=== PATIENT | female | born 1970 | race Caucasian/White ===

== ENCOUNTER 2021-05-16 15:16 | Emergency (ER) | payer MEDICAID ==
[~2021-05-16] VITALS: Ht 172.7 cm; Wt 77.1 kg
[2021-05-16] MEDS ORDERED: INSULIN REGULAR, HUMAN 100 UNIT/ML 3 ML VIAL IV ONE (15:19)
[2021-05-16 15:29] VITALS: BP 142/79
--- NOTE | 2021-05-16 15:29 | NUR ---
To ER, SANDRA RA 860 "Homeless. Suicidal thought- shoot myself." Hx of diabetes, denies any pain, aaox3, breathing even and non labored, made comfortable, awaiting md orders
--- NOTE | 2021-05-16 15:31 | NUR ---
URINE COLLECTED AND SENT TO LAB
[2021-05-16] MEDS ORDERED: METFORMIN 500 MG TABLET PO ONE (16:00)
[2021-05-16 16:15] LABS: BASOPHILS % (AUTO) 0.3 % (0.0-2.0); HEMATOCRIT 39 % (33-45); HEMOGLOBIN 12.7 g/dL (11.5-14.8); LYMPHOCYTES % (AUTO) 16.3 % (20.0-44.0); MEAN CORPUSCULAR HGB CONC 33 g/dl (31.0-36.0); MEAN CORPUSCULAR VOLUME 80 fL (82-100); MONOCYTES # (AUTO) 0.8 K/uL (0.1-1.30); MONOCYTES % (AUTO) 6.1 % (2.0-12.0); NEUTROPHILS # (AUTO) 9.4 K/uL (1.8-8.9); NEUTROPHILS % (AUTO) 76.3 % (43.0-81.0); PLATELET COUNT (AUTO) 350 K/uL (150-450); RED BLOOD CELL COUNT(AUTO) 4.89 MIL/uL (4.0-5.2); WHITE BLOOD COUNT (AUTO) 12.4 K/uL (4.3-11.0)
[2021-05-16 16:26] LABS: BILIRUBIN,URINE NEGATIVE (NEGATIVE); COLOR,URINE YELLOW (YELLOW); LEUKOCYTE ESTERASE ,URINE NEGATIVE (NEGATIVE); NITRITE, URINE NEGATIVE (NEGATIVE); PROTEIN,URINE NEGATIVE (NEGATIVE); UGLUCOSE >=1000 mg/dL (NEGATIVE); UROBILINOGEN,URINE 0.2 EU/dL (0.2)
[2021-05-16 16:45] LABS: ALANINE AMINOTRANSFERASE 16 U/L (12-78); ALBUMIN 3.1 g/dL (3.4-5.0); ALKALINE PHOSPHATASE 101 U/L (46-116); ASPARTATE AMINOTRANSFERASE 8 U/L (15-37); BILIRUBIN,DIRECT 0.1 mg/dL (0.0-0.2); BILIRUBIN,TOTAL 0.2 mg/dL (0.2-1.0); CALCIUM, SERUM 9.4 mg/dL (8.5-10.1); CARBON DIOXIDE 28 mmol/L (21-32); CHLORIDE 100 mmol/L (98-107); CREATININE 0.8 mg/dL (0.6-1.3); GLUCOSE 329 mg/dL (74-106); POTASSIUM 4.1 mmol/L (3.5-5.1); SODIUM SERUM 136 mmol/L (136-145); TOTAL PROTEIN, SERUM 7.6 g/dL (6.4-8.2); UREA NITROGEN, BLOOD 15 mg/dL (7-18)
[2021-05-16 16:47] LABS: BACTERIA,URINE RARE /HPF (None Seen); MUCUS,URINE Few /LPF (None Seen)
[2021-05-16] MEDS ORDERED: METFORMIN 500 MG TABLET ONE (16:48)
[2021-05-16 16:55] LABS: ACETAMINOPHEN 0 ug/ml (10-30)
[2021-05-16 16:56] LABS: ALCOHOL, BLOOD < 3 mg/dL (0-0)
[2021-05-16] MEDS ORDERED: NITROFURANTOIN/MONOHYDRATE MACROCRYSTALS 100 MG CAPSULE PO ONE (17:30)
[2021-05-16] MEDS ORDERED: NITROFURANTOIN/MONOHYDRATE MACROCRYSTALS 100 MG CAPSULE ONE (17:31)
--- NOTE | 2021-05-16 18:35 | NUR ---
FAXED CLINICALS TO [facility] INTAKE.
[2021-05-17] MEDS ORDERED: INSULIN REGULAR, HUMAN 100 UNIT/ML 10 ML VIAL SQ ONE (04:30)
--- NOTE | 2021-05-17 05:04 | NUR ---
REGULAR INSULIN IS NOT AVAILABLE IN [facility]MN[facility]. INSULIN VIAL WAS AVAILABLE AT [facility]URSING STATION. MEDICATED ORDERED
--- NOTE | 2021-05-17 10:15 | NUR ---
FAXED SCVN WITH NEW BLOOD GLUCOSE 190.
--- NOTE | 2021-05-17 11:49 | NUR ---
CALLED [facility] TO FOLLOW UP PER ART STILL BEING REVIEWED BY SUP. WILL CALL US BACK.
--- NOTE | 2021-05-17 12:13 | NUR ---
CALL FROM ART FROM [facility],ACCEPTED BY DR KING, WANTS REPORT TO BE CALLED AT 1300 TO [phone]
--- NOTE | 2021-05-17 14:06 | NUR ---
TRANSPORTED TO [facility] VIA [facility] SHUTTLE. STABLE CONDITION.
== END 2021-05-17 14:07 ==
LOC: ER 15:18
DX: R45.851 Suicidal ideations (principal); N39.0 Urinary tract infection, site not specified; E11.65 Type 2 diabetes mellitus with hyperglycemia; Z20.822 Contact with and (suspected) exposure to COVID-19; I10 Essential (primary) hypertension; Z98.890 Other specified postprocedural states; Z59.00 Homelessness unspecified
CPT/HCPCS: 36415; 80048; 80076; 80143; 80307; 80320; 81001; 82962 ×4; 85025; 87426; 96372; 99285; C9803; J1815; G0480